=== PATIENT | male | born 1975 | race Caucasian/White ===

== ENCOUNTER 2020-12-05 00:08 | Emergency (ER) | payer OTHER ==
[~2020-12-05 00:08] MED LIST: "DEPAKOTE \\\"ER\\\"500 MG" PO; BACTRIM DS TAB1 EACH PO; BUSPAR 5MG TABLE5 MG PO; CIPRO500 MG PO; COLACE 100MG C100 MG PO; DOXYCYCLINE HY100 MG PO; DOXYCYCLINE MO100 MG PO; GABAPENTIN300 MG PO; GLUCOPHAGE 500500 MG PO; IBU800 MG PO; LANTUS100 UNIT/1 SQ; LEVEMIR100 UNIT/1 SQ; LISINOPRIL10 MG PO; LOPID TAB 600600 MG PO; MEDROL DOSEPAK 24 MG PO; NORCO 5-325 TA1 EACH PO; PERCOCET 5-3251 EACH PO; PRAVASTATIN SOD10 MG PO; PRAZOSIN HCL1 MG PO; SERZONE TAB 10100 MG PO; VENTOLIN HFA 66.7 GM INH; VENTOLIN/PROVE0.5 ML INH; ZOFRAN ODT 4 MG4 MG PO; ZOFRAN4 MG PO; ZOLOFT100 MG PO
[2020-12-05 00:42] LABS: HEMOGLOBIN 16.4 gm/dl (14.0-17.5); RED BLOOD COUNT 5.15 M/UL (4.20-5.50); WHITE BLOOD COUNT 7.3 K/UL (4.5-11.0)
[2020-12-05 06:41] LABS: BUN/CREATININE RATIO 16 (0-10)
[2020-12-05] MEDS ORDERED: ZOFRAN ODT 4 MG4 MG PO (07:46)
== END 2020-12-05 08:04 | disposition home or self-care (01) ==
LOC: ER1 00:08
PROVIDERS: Physician Assistant
DX: E86.0 Dehydration (principal); R11.2 Nausea with vomiting, unspecified; E11.9 Type 2 diabetes mellitus without complications; R10.30 Lower abdominal pain, unspecified; F17.210 Nicotine dependence, cigarettes, uncomplicated; Z79.4 Long term (current) use of insulin; Z90.49 Acquired absence of other specified parts of digestive tract; Z20.822 Contact with and (suspected) exposure to COVID-19
CPT/HCPCS: 80048; 80053; 81001; 82962; 83690; 85025; 87086; 96372; 96374; 99284; J2270; J2405; U0002

== ENCOUNTER 2020-12-18 23:14 | Emergency (ER) | payer OTHER ==
[2020-12-19 00:10] LABS: BUN/CREATININE RATIO 23 (0-10)
[2020-12-19 00:24] LABS: HEMOGLOBIN 17.5 gm/dl (14.0-17.5); RED BLOOD COUNT 5.59 M/UL (4.20-5.50); WHITE BLOOD COUNT 6.7 K/UL (4.5-11.0)
[2020-12-19] MEDS ORDERED: ZOFRAN ODT 4 MG4 MG SL (04:14)
== END 2020-12-19 04:21 | disposition home or self-care (01) ==
LOC: ER1 23:14
PROVIDERS: Physician Assistant
DX: R11.2 Nausea with vomiting, unspecified (principal); R19.7 Diarrhea, unspecified; R10.30 Lower abdominal pain, unspecified; E11.65 Type 2 diabetes mellitus with hyperglycemia; J45.909 Unspecified asthma, uncomplicated; F17.200 Nicotine dependence, unspecified, uncomplicated; Z20.822 Contact with and (suspected) exposure to COVID-19; Z91.013 Allergy to seafood; Z88.8 Allergy status to other drugs, medicaments and biological substances; Z90.49 Acquired absence of other specified parts of digestive tract
CPT/HCPCS: 80053; 82803; 82962; 83690; 85025; 96374; 99284; J1885; U0002

== ENCOUNTER 2021-01-09 22:17 | Emergency (ER) | payer OTHER ==
[~2021-01-09 22:17] MED LIST changes: +ZOFRAN ODT 4 MG4 MG SL
[2021-01-10] MEDS ORDERED: LODINE CAP 300300 MG PO (00:07)
[2021-01-10] MEDS ORDERED: CEPHALEXIN500 MG PO (00:07)
== END 2021-01-10 00:12 | disposition home or self-care (01) ==
LOC: ER1 22:17
DX: S60.511A Abrasion of right hand, initial encounter (principal); L03.012 Cellulitis of left finger; E11.9 Type 2 diabetes mellitus without complications; F17.210 Nicotine dependence, cigarettes, uncomplicated; X58.XXXA Exposure to other specified factors, initial encounter
CPT/HCPCS: 73130; 99283

== ENCOUNTER 2021-01-17 13:32 | Observation (INO) | payer OTHER ==
[~2021-01-17] VITALS: Ht 182.9 cm; Wt 96.2 kg
[~2021-01-17 13:32] MED LIST changes: +CEPHALEXIN500 MG PO; +LODINE CAP 300300 MG PO
[2021-01-17 15:20] LABS: RED BLOOD COUNT 5.29 M/UL (4.20-5.50); WHITE BLOOD COUNT 10.9 K/UL (4.5-11.0)
[2021-01-17 15:35] LABS: BUN/CREATININE RATIO 15 (0-10)
[2021-01-17] MEDS ORDERED: HUMULIN R100 UNIT/1 INJ (18:26)
[2021-01-17] MEDS ORDERED: HUMULIN 70100 UNIT/1 SC (18:26)
[2021-01-18 07:06] LABS: HEMOGLOBIN 15.9 gm/dl (14.0-17.5); RED BLOOD COUNT 5.09 M/UL (4.20-5.50); WHITE BLOOD COUNT 9.1 K/UL (4.5-11.0)
[2021-01-18 07:47] LABS: BUN/CREATININE RATIO 12 (0-10)
[2021-01-19 06:04] LABS: HEMOGLOBIN 16.7 gm/dl (14.0-17.5); RED BLOOD COUNT 5.29 M/UL (4.20-5.50); WHITE BLOOD COUNT 7.8 K/UL (4.5-11.0)
[2021-01-19 07:12] LABS: BUN/CREATININE RATIO 9 (0-10)
[2021-01-19] MEDS ORDERED: BACTRIM DS TAB1 EACH PO (11:24)
[2021-01-19] MEDS ORDERED: NEOSPORIN OINT15 GM TOP (11:24)
[2021-01-19] MEDS ORDERED: OMNICEF 300 MG300 MG PO (11:24)
== END 2021-01-19 12:04 | disposition left against medical advice (07) ==
LOC: ER1 13:32 → MED SURG 4 17:45 → CDU 17:45 → MED SURG 4 19:24
PROVIDERS: Physician Assistant; ADMIT Internal Medicine
DX: E11.628 Type 2 diabetes mellitus with other skin complications (principal); L03.011 Cellulitis of right finger; L02.511 Cutaneous abscess of right hand; E11.65 Type 2 diabetes mellitus with hyperglycemia; M79.5 Residual foreign body in soft tissue; L08.0 Pyoderma; E87.1 Hypo-osmolality and hyponatremia; F17.210 Nicotine dependence, cigarettes, uncomplicated; Z20.822 Contact with and (suspected) exposure to COVID-19; Z88.4 Allergy status to anesthetic agent; Z91.013 Allergy to seafood; Z79.4 Long term (current) use of insulin; Z53.29 Procedure and treatment not carried out because of patient's decision for other reasons
CPT/HCPCS: 36415; 73130; 80048; 80053; 80202; 82962; 83036; 85025; 85027; 85652; 86140; 87040; 93005; 96372; 96374; 96375; 96376; 99284; G0378; J0692; J0696; J1650; J3370; J7050; J7070; U0002

== ENCOUNTER 2021-01-21 11:25 | Observation (INO) | payer OTHER ==
[~2021-01-21] VITALS: Ht 182.9 cm; Wt 103.9 kg
[~2021-01-21 11:25] MED LIST changes: +HUMULIN 70100 UNIT/1 SC; +HUMULIN R100 UNIT/1 INJ; +NEOSPORIN OINT15 GM TOP; +OMNICEF 300 MG300 MG PO
[2021-01-21 13:53] LABS: HEMOGLOBIN 18.5 gm/dl (14.0-17.5); RED BLOOD COUNT 5.81 M/UL (4.20-5.50)
[2021-01-21 14:10] LABS: WHITE BLOOD COUNT 5.6 K/UL (4.5-11.0)
[2021-01-21 14:17] LABS: BUN/CREATININE RATIO 20 (0-10)
[2021-01-22 08:24] LABS: RED BLOOD COUNT 5.74 M/UL (4.20-5.50); WHITE BLOOD COUNT 6.5 K/UL (4.5-11.0)
[2021-01-22 08:42] LABS: BUN/CREATININE RATIO 17 (0-10)
[2021-01-22] MEDS ORDERED: LANTUS100 UNIT/1 SC (21:35)
[2021-01-23 05:44] LABS: HEMOGLOBIN 16.9 gm/dl (14.0-17.5); RED BLOOD COUNT 5.39 M/UL (4.20-5.50); WHITE BLOOD COUNT 6.5 K/UL (4.5-11.0)
[2021-01-23 06:10] LABS: BUN/CREATININE RATIO 14 (0-10)
== END 2021-01-23 17:40 | disposition home or self-care (01) ==
LOC: ER1 11:25 → CDU 15:30 → M/S 15:30
PROVIDERS: Emergency Medicine; Physician Assistant; Physician Assistant Medical; ADMIT Internal Medicine
DX: L03.011 Cellulitis of right finger (principal); E11.65 Type 2 diabetes mellitus with hyperglycemia; L02.511 Cutaneous abscess of right hand; F17.200 Nicotine dependence, unspecified, uncomplicated; Z20.822 Contact with and (suspected) exposure to COVID-19; Z91.14 Patient's other noncompliance with medication regimen; Z79.4 Long term (current) use of insulin; Z79.2 Long term (current) use of antibiotics; Z79.899 Other long term (current) drug therapy; Z88.8 Allergy status to other drugs, medicaments and biological substances; Z90.49 Acquired absence of other specified parts of digestive tract
CPT/HCPCS: 36415; 80048; 80053; 80202; 82962; 83605; 83735; 85025; 85027; 96372; 96374; 96375; 96376; 99284; G0378; J0692; J1650; J2270; J2405; J3370; J7070; U0002